=== PATIENT | female | born 1990 | race Hispanic/Latino ===

== ENCOUNTER → 2017-11-07 | Outpatient (CLI) | payer OTHER ==
[~2017-11-07] MED LIST: CIPRO500 MG PO; CIPRODEX OTIC7.5 ML RIGHT EAR; KEFLEX500 MG PO
== END | disposition home or self-care (01) ==
LOC: CDC 15:20
DX: R07.9 Chest pain, unspecified (principal)
CPT/HCPCS: 93000

== ENCOUNTER 2017-11-20 16:17 | Emergency (ER) | payer OTHER ==
[~2017-11-20] VITALS: Ht 157.5 cm; Wt 76.9 kg
[2017-11-20 16:20] VITALS: BP 124/79
[2017-11-20 16:37] LABS: HEMATOCRIT 38.5 % (36.0-46.0); HEMOGLOBIN 12.6 G/DL (11.9-15.5); MCH 27.9 PG (29.0-34.0); MCHC 32.7 G/DL (30.0-36.0); MCV 85.2 FL (83-99); PLATELET COUNT 359 K/uL (156-360); RBC DIS.WIDTH-CV 13.9 % (11.8-14.6); RED BLOOD COUNT 4.52 M/uL (3.80-5.20); WHITE BLOOD COUNT 9.8 K/uL (4.1-10.2)
[2017-11-20 16:44] LABS: CHLORIDE 107 mEq/L (99-109); POTASSIUM 3.4 mEq/L (3.7-5.4); SODIUM 142 mEq/L (136-147)
[2017-11-20 16:46] LABS: GLUCOSE 98 mg/dL (70-99)
[2017-11-20 16:50] LABS: CREATININE 0.8 mg/dL (0.6-1.3); GFR ESTIMATE (CALCULATED) > 59 mL/min/
[2017-11-20 16:51] LABS: UREA NITROGEN (BUN) 8 mg/dL (9-23)
[2017-11-20 16:57] LABS: TROP-I INTERPRETATION NEGATIVE; TROPONIN-I < 0.01 ng/mL (0.0-0.30)
[2017-11-20 16:58] LABS: QUANTITATIVE HCG < 4.0 MIU/ML
== END 2017-11-20 18:15 | disposition left against medical advice (07) ==
LOC: EME 16:17
DX: R07.89 Other chest pain (principal)
CPT/HCPCS: 71046; 80048; 84484; 84702; 85027; 93005; 99281; 99284